=== PATIENT | female | born 1995 | race Caucasian/White ===

== ENCOUNTER 2017-05-03 20:41 | Emergency (ER) | payer BC ==
[~2017-05-03] VITALS: Ht 182.9 cm; Wt 67.3 kg
[2017-05-03 20:46] VITALS: TEMP 36.8; Ht 182.9 cm; Wt 67.3 kg
[2017-05-03] MEDS ORDERED: SODIUM CHLORIDE 0.9% 1000ML 1,000 ML IV STA (21:56)
--- NOTE | 2017-05-03 22:02 | EMERGENCY ROOM VISIT NOTE ---
History Report prepared by Livan: Silke Hillman Under the Supervision of: Dr. Katrina Manning M.D. First contact with patient: 21:46 Chief Complaint: RECTAL BLEEDING Stated Complaint: LOTS OF WORMS, BLOOD IN STOOL History of Present Illness The patient is a 22 year old female who presents to the Emergency Room with complaints of persistent rectal bleeding that began this morning. She currently rates her discomfort as a 7/10 in severity. The patient states that this morning she had a bowel movement and noticed blood in the stool and worms. She states that as the day progressed, she became increasingly weak and became near syncopal. The patient states that this afternoon she went to [facility] with a stool sample and was confirmed that she had round worms and with tapeworm eggs in her stool. She states that she was given a prescription to take care of her symptoms, but states that her pharmacy was closed for the evening. The patient states that her stool is diarrhea in consistency. She denies any chance of . 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 Source of History: patient Onset: this morning Position: other (rectal) Symptom Intensity: 7/10 Quality: other (bleeding) Timing: other (persistent) Associated Symptoms: + weakness Note: Associated Symptoms: near syncopal, worms in stool Review of Systems See HPI for pertinent positives & negatives. A total of 10 systems reviewed and were otherwise negative. Past Medical & Surgical Medical Problems: (1) Skin problem (2) Ulcer Family History Hypertension Retinal detachment Social History Smoking Status: Never Smoker Smokeless Tobacco Use: No Alcohol Use: occasionally Marital Status: single Housing Status: lives alone Occupation Status: employed, [employer] student Current/Historical Medications Scheduled Control Pills ( Control Pills), 1 TAB PO DAILY Allergies Coded Allergies: No Known Allergies (Unverified , 05/03/17) Physical Exam Vital Signs Date Time Temp Pulse Resp B/P (MAP) Pulse Ox O2 Delivery O2 Flow Rate FiO2 05/03/17 23:15 73 20 137/100 98 Room Air 05/03/17 22:22 58 05/03/17 22:22 58 20 131/96 98 Room Air 05/03/17 22:13 55 125/86 64 138/97 66 131/96 05/03/17 20:46 36.8 70 18 144/95 100 Room Air Physical Exam Vital signs reviewed. General: Well-appearing female, in no significant distress. HEENT: No scleral icterus, PERRLA, neck supple. Atraumatic. Cardiovascular: Regular rate and rhythm, no extra sounds. Pulmonary: Clear to auscultation bilaterally, normal work of breathing. Abdomen: Soft, nontender, nondistended, positive bowel sounds. Musculoskeletal: Atraumatic, no peripheral edema. Neurologic: Patient awake alert and oriented x 3 Skin: Warm, dry, no rash Medical Decision & Procedures Laboratory Results 05/03/17 22:15 Red Blood Count 4.69, Mean Corpuscular Volume 82.9, Mean Corpuscular Hemoglobin 28.6, Mean Corpuscular Hemoglobin Concent 34.4, Mean Platelet Volume 9.0, Neutrophils (%) (Auto) 39.6, Lymphocytes (%) (Auto) 47.1, Monocytes (%) (Auto) 10.2, Eosinophils (%) (Auto) 2.6, Basophils (%) (Auto) 0.3, Neutrophils # (Auto ) 2.44, Lymphocytes # (Auto) 2.90, Monocytes # (Auto) 0.63, Eosinophils # (Auto ) 0.16, Basophils # (Auto) 0.02 05/03/17 22:15 Test 05/03/17 22:15 White Blood Count 6.16 K/uL (4.8-10.8) Red Blood Count 4.69 M/uL (4.2-5.4) Hemoglobin 13.4 g/dL (12.0-16.0) Hematocrit 38.9 % (37-47) Mean Corpuscular Volume 82.9 fL (80-100) Mean Corpuscular Hemoglobin 28.6 pg (25-34) Mean Corpuscular Hemoglobin Concent 34.4 g/dl (32-36) Platelet Count 222 K/uL (130-400) Mean Platelet Volume 9.0 fL (7.4-10.4) Neutrophils (%) (Auto) 39.6 % Lymphocytes (%) (Auto) 47.1 % Monocytes (%) (Auto) 10.2 % Eosinophils (%) (Auto) 2.6 % Basophils (%) (Auto) 0.3 % Neutrophils # (Auto) 2.44 K/uL (1.4-6.5) Lymphocytes # (Auto) 2.90 K/uL (1.2-3.4) Monocytes # (Auto) 0.63 K/uL (0.11-0.59) Eosinophils # (Auto) 0.16 K/uL (0-0.5) Basophils # (Auto) 0.02 K/uL (0-0.2) RDW Standard Deviation 41.1 fL (36.4-46.3) RDW Coefficient of Variation 13.7 % (11.5-14.5) Immature Granulocyte % (Auto) 0.2 % Immature Granulocyte # (Auto) 0.01 K/uL (0.00-0.02) Anion Gap 11.0 mmol/L (3-11) Est Creatinine Clear Calc Drug Dose 97.5 ml/min Estimated GFR () 96.8 Estimated GFR (Non- 83.5 BUN/Creatinine Ratio 9.9 (10-20) Calcium Level 8.4 mg/dl (8.5-10.1) Total Bilirubin 0.5 mg/dl (0.2-1) Direct Bilirubin 0.1 mg/dl (0-0.2) Aspartate Amino Transf (AST/SGOT) 16 U/L (15-37) Alanine Aminotransferase (ALT/SGPT) 24 U/L (12-78) Alkaline Phosphatase 40 U/L (45-117) Total Protein 7.0 gm/dl (6.4-8.2) Albumin 3.8 gm/dl (3.4-5.0) Laboratory results per my review. Medications Administered Medications (Trade) Dose Ordered Sig/Chris Route Start Time Stop Time Status Last Admin Dose Admin Sodium Chloride 1,000 ml @ 999 mls/hr Q1H1M STAT IV 05/03/17 21:56 05/03/17 22:56 DC 05/03/17 21:56 999 MLS/HR Potassium Chloride (Klor-Con M10) 40 meq NOW STAT PO 05/03/17 23:09 05/03/17 23:10 DC 05/03/17 23:09 40 MEQ ED Course 2148: Past medical records reviewed. The patient was evaluated in room C3. A complete history and physical examination was performed. 2155: Ordered Sodium Chloride 1000 ml @ 999 mls/hr IV. 9: Ordered Potassium Chloride 40 meq PO. 2328: I reevaluated the patient and she is doing well. I discussed the exam findings with her and I discussed the treatment plan. She verbalized complete understanding and agreement. She is ready to go home. Medical Decision The patient is a 22 year old female who presents to the ED with complaints of rectal bleeding. Differentials include parasitic infection, food borne illness , dehydration, electrolyte abnormality, GI bleed. Medication Reconciliation: I attest that I have personally reviewed the patient' s current medication list. Blood Pressure Screening: Patient was found to have an elevated blood pressure and was referred to their primary doctor for recheck and further treatment. This patient was evaluated and appeared to be in no significant distress. IV access was obtained and laboratory work was drawn. 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 She was hydrated with normal saline solution. The patient's laboratory work reveals a stable H&H. She does have mildly depleted sodium and potassium levels. Patient was given potassium 40 mEq by mouth. The patient was informed of the findings. She is very interested in not creating a large bill and prefers to have her prescription filled tomorrow at the pharmacy. The patient was encouraged to continue treatment as previously prescribed for her parasitic infection. She will follow-up with her physician for reevaluation and repeat laboratory work regarding her electrolytes. She will return to the ER for worsening of symptoms or any medical concerns. Impression Primary Impression: Parasites in stool Additional Impressions: Hyponatremia Hypokalemia Scribe Attestation The scribe's documentation has been prepared under my direction and personally reviewed by me in its entirety. I confirm that the note above accurately reflects all work, treatment, procedures, and medical decision making performed by me. Departure Information Dispostion Home / Self-Care Referrals No Doctor, Assigned (PCP) Forms HOME CARE DOCUMENTATION FORM, IMPORTANT VISIT INFORMATION, WORK / SCHOOL INSTRUCTIONS Patient Instructions My [facility] Additional Instructions Diagnosis: Hyponatremia, hypokalemia Increase the salt and potassium in your diet. Take your medication as prescribed for your parasite infection. Drink plenty of fluids. Follow-up with [facility] for repeat laboratory evaluation in one week, mostly sodium and potassium. Return to the emergency department for worsening of symptoms or any medical concerns. Problem Qualifiers
[2017-05-03 22:30] LABS: BASO % 0.3 %; BASO ABS # 0.02 K/uL (0-0.2); COMPLETE YES; EOS % 2.6 %; HEMATOCRIT 38.9 % (37-47); IG% 0.2 %; LYMPH % 47.1 %; MEAN CELL VOLUME 82.9 fL (80-100); MEAN CORPUSCULAR HEMOGLOBIN 28.6 pg (25-34); MEAN CORPUSCULAR HGB CONC 34.4 g/dl (32-36); MONO % 10.2 %; NEUT % 39.6 %; PLATELET COUNT 222 K/uL (130-400); RED BLOOD COUNT 4.69 M/uL (4.2-5.4); WHITE BLOOD COUNT 6.16 K/uL (4.8-10.8)
[2017-05-03 22:55] LABS: BUN/CREATININE RATIO 9.9 (10-20); CREATININE 0.97 mg/dl (0.60-1.20); POTASSIUM 3.3 mmol/L (3.5-5.1)
[2017-05-03 22:59] LABS: CALCIUM 8.4 mg/dl (8.5-10.1)
[2017-05-03] MEDS ORDERED: BCPILLS PO (23:05)
[2017-05-03] MEDS ORDERED: POTASSIUM CHLORIDE 10 MEQ TABCR PO STA (23:09)
[2017-05-03 23:15] VITALS: BP 137/100; PULSE 73; O2SAT 98
== END 2017-05-03 23:36 | disposition home or self-care (01) ==
LOC: C.EDB 20:43 → C.EDC 23:36
DX: B82.9 Intestinal parasitism, unspecified (principal); Z82.49 Family history of ischemic heart disease and other diseases of the circulatory system; Z79.3 Long term (current) use of hormonal contraceptives; E87.1 Hypo-osmolality and hyponatremia; E87.6 Hypokalemia

== ENCOUNTER 2018-02-05 02:44 | Emergency (ER) | payer BC ==
[~2018-02-05] VITALS: Ht 167.6 cm; Wt 70.2 kg
[~2018-02-05 02:44] MED LIST: BCPILLS PO
[2018-02-05 02:53] VITALS: TEMP 37.2; Ht 167.6 cm; Wt 70.2 kg
[2018-02-05] MEDS ORDERED: SODIUM CHLORIDE 0.9% 1000ML 1,000 ML IV STA (03:04)
[2018-02-05 03:30] LABS: BASO % 0.4 %; BASO ABS # 0.04 K/uL (0-0.2); EOS % 0.5 %; EOS ABS # 0.05 K/uL (0-0.5); HEMATOCRIT 38.2 % (37-47); HEMOGLOBIN 13.3 g/dL (12.0-16.0); IG# 0.02 K/uL (0.00-0.02); LYMPH % 16.6 %; LYMPH ABS # 1.63 K/uL (1.2-3.4); MEAN CELL VOLUME 83.6 fL (80-100); MEAN CORPUSCULAR HEMOGLOBIN 29.1 pg (25-34); MEAN CORPUSCULAR HGB CONC 34.8 g/dl (32-36); MEAN PLATELET VOLUME 8.7 fL (7.4-10.4); MONO % 14.2 %; NEUT % 68.1 %; PLATELET COUNT 279 K/uL (130-400); RED CELL DISTRIBUTION WIDTH CV 14.4 % (11.5-14.5); RED CELL DISTRIBUTION WIDTH SD 44.5 fL (36.4-46.3); WHITE BLOOD COUNT 9.84 K/uL (4.8-10.8)
[2018-02-05 03:51] LABS: ALBUMIN 4.2 gm/dl (3.4-5.0); CALCIUM 9.3 mg/dl (8.5-10.1); CREATININE 0.82 mg/dl (0.60-1.20); POTASSIUM 3.3 mmol/L (3.5-5.1)
[2018-02-05 03:54] LABS: TOTAL PROTEIN 7.7 gm/dl (6.4-8.2)
--- NOTE | 2018-02-05 04:28 | EMERGENCY ROOM VISIT NOTE ---
History First contact with patient: 02:54 Chief Complaint: OTHER COMPLAINT Stated Complaint: Found wondering around downtown, r/o overdose History of Present Illness The patient is a 22 year old female who presents to the Emergency Room via ALS for evaluation of possible overdose. History is limited due to patient's mental status. Per EMS and police, the patient was wandering around downtown and knocked on a stranger's door. They answered the door and the patient went inside and would not answer questions, prompting them to call the police. The patient denies any drug or alcohol use. She denies any complaints. Review of Systems A complete 10 point review of systems was reviewed with the patient with pertinent positives and negatives as per history of present illness. All else were negative. 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 Vital signs stable. GENERAL: This is a 22-year-old female, in no acute distress, nondiaphoretic, well-developed well-nourished. SKIN: The skin was without rashes. HEAD: Normocephalic atraumatic. EARS: External auditory canals clear, tympanic membranes pearly neri without erythema or effusion bilaterally. EYES: Pupils equal round and reactive to light and accommodation. Extraocular movements intact. MOUTH: Mucous membranes moist. Tonsils are not enlarged. Pharynx without erythema or exudate. NECK: Supple without nuchal rigidity. No lymphadenopathy. No meningismus. HEART: Regular rate and rhythm without murmurs gallops or rubs. LUNGS: Clear to auscultation bilaterally without wheezes, rales or rhonchi. ABDOMEN: Positive bowel sounds x 4. Soft, nondistended. NEURO: Patient was alert, initially oriented only to person. She is able to follow commands. No focal neuro deficits. PSYCH: Odd affect. Patient answers questions quietly and looks around the room frequently. Medical Decision & Procedures ER Provider Diagnostic Interpretation: Per statrad interpretation: CT HEAD: No evidence of intracranial hemorrhage, mass, or shift in midline structure. Calvarium is intact. Paranasal sinuses and mastoid air cells are clear. Radiologist: Tariq Reed DO Laboratory Results 02/05/18 03:10 Red Blood Count 4.57, Mean Corpuscular Volume 83.6, Mean Corpuscular Hemoglobin 29.1, Mean Corpuscular Hemoglobin Concent 34.8, Mean Platelet Volume 8.7, Neutrophils (%) (Auto) 68.1, Lymphocytes (%) (Auto) 16.6, Monocytes (%) (Auto) 14.2, Eosinophils (%) (Auto) 0.5, Basophils (%) (Auto) 0.4, Neutrophils # (Auto ) 6.70, Lymphocytes # (Auto) 1.63, Monocytes # (Auto) 1.40, Eosinophils # (Auto ) 0.05, Basophils # (Auto) 0.04 02/05/18 03:10 Test 02/05/18 03:10 02/05/18 03:31 White Blood Count 9.84 K/uL (4.8-10.8) Red Blood Count 4.57 M/uL (4.2-5.4) Hemoglobin 13.3 g/dL (12.0-16.0) Hematocrit 38.2 % (37-47) Mean Corpuscular Volume 83.6 fL (80-100) Mean Corpuscular Hemoglobin 29.1 pg (25-34) Mean Corpuscular Hemoglobin Concent 34.8 g/dl (32-36) Platelet Count 279 K/uL (130-400) Mean Platelet Volume 8.7 fL (7.4-10.4) Neutrophils (%) (Auto) 68.1 % Lymphocytes (%) (Auto) 16.6 % Monocytes (%) (Auto) 14.2 % Eosinophils (%) (Auto) 0.5 % Basophils (%) (Auto) 0.4 % Neutrophils # (Auto) 6.70 K/uL (1.4-6.5) Lymphocytes # (Auto) 1.63 K/uL (1.2-3.4) Monocytes # (Auto) 1.40 K/uL (0.11-0.59) Eosinophils # (Auto) 0.05 K/uL (0-0.5) Basophils # (Auto) 0.04 K/uL (0-0.2) RDW Standard Deviation 44.5 fL (36.4-46.3) RDW Coefficient of Variation 14.4 % (11.5-14.5) Immature Granulocyte % (Auto) 0.2 % Immature Granulocyte # (Auto) 0.02 K/uL (0.00-0.02) Anion Gap 10.0 mmol/L (3-11) Est Creatinine Clear Calc Drug Dose 101.5 ml/min Estimated GFR () 118.6 Estimated GFR (Non- 102.3 BUN/Creatinine Ratio 8.2 (10-20) Calcium Level 9.3 mg/dl (8.5-10.1) Total Bilirubin 0.8 mg/dl (0.2-1) Direct Bilirubin 0.2 mg/dl (0-0.2) Aspartate Amino Transf (AST/SGOT) 20 U/L (15-37) Alanine Aminotransferase (ALT/SGPT) 34 U/L (12-78) Alkaline Phosphatase 82 U/L (45-117) Total Protein 7.7 gm/dl (6.4-8.2) Albumin 4.2 gm/dl (3.4-5.0) Salicylates Level < 1.7 mg/dl (2.8-20) Acetaminophen Level < 2 ug/ml (10-30) Ethyl Alcohol mg/dL < 3.0 mg/dl (0-3) Urine Color YELLOW Urine Appearance CLEAR (CLEAR) Urine pH 7.5 (4.5-7.5) Urine Specific Mercer 1.005 (1.000-1.030) Urine Protein NEG (NEG) Urine Glucose (UA) NEG (NEG) Urine Ketones NEG (NEG) Urine Occult Blood NEG (NEG) Urine Nitrite NEG (NEG) Urine Bilirubin NEG (NEG) Urine Urobilinogen NEG (NEG) Urine Leukocyte Esterase SMALL (NEG) Urine WBC (Auto) 1-5 /hpf (0-5) Urine RBC (Auto) 0-4 /hpf (0-4) Urine Hyaline Casts (Auto) 0 /lpf (0-5) Urine Epithelial Cells (Auto) >30 /lpf (0-5) Urine Bacteria (Auto) NEG (NEG) Urine Test NEG (NEG) Urine Opiates Screen NEG (NEG) Urine Methadone, Qualitative NEG (NEG) Urine Barbiturates NEG (NEG) Urine Phencyclidine (PCP) Level NEG (NEG) Ur Amphetamine/Methamphetamine NEG (NEG) MDMA (Ecstasy) Screen NEG (NEG) Urine Benzodiazepines Screen NEG (NEG) Urine Cocaine Metabolite NEG (NEG) Urine Marijuana (THC) NEG (NEG) Medications Administered Medications (Trade) Dose Ordered Sig/Chris Route Start Time Stop Time Status Last Admin Dose Admin Sodium Chloride 1,000 ml @ 999 mls/hr Q1H1M STAT IV 02/05/18 03:04 02/05/18 04:04 DC 02/05/18 03:20 999 MLS/HR Risperidone (Risperdal Tab) 1 mg NOW STAT PO 02/05/18 08:16 02/05/18 08:23 DC 02/05/18 08:16 1 MG ED Course The patient was evaluated as above. Labs were drawn and IV access was obtained. CT of the head was performed and read by estephania as above. Patient was reevaluated and was able to answer a few questions. When asked about the events of last night, she states she was "following her instincts." Patient will need to be monitored for several more hours and evaluated by mental health prior to discharge. Medical Decision Differential diagnosis includes drug use, alcohol intoxication, head trauma, mood disorder, infection, among others. The patient is a 22-year-old female who presents today via EMS for evaluation. The patient was found wandering around and knocked on a stranger's door. Patient initially was very disoriented. CT head was negative. Labs revealed no leukocytosis, anemia, or concerning electrolyte abnormalities. Urinalysis was not suggestive of infection. Tox screen was negative, although I am highly suspicious of the use of synthetic drugs. Patient's mental status improved over several hours, although she still exhibited some odd behavior. I did ask mental health to evaluate the patient prior to her potential discharge. Care of the patient was signed out to Marycruz Cosme PA-C at change of shift pending this. Medication Reconcilliation Current Medication List: was personally reviewed by me Blood Pressure Screening Patient's blood pressure: Normal blood pressure Impression Primary Impression: Altered mental status Departure Information Referrals No Doctor, Assigned (PCP) Patient Instructions My [facility]
[2018-02-05 05:56] VITALS: BP 110/59
--- NOTE | 2018-02-05 06:36 | DIAGNOSTIC IMAGING REPORT ---
HEAD WITHOUT CONTRAST (CT) CLINICAL HISTORY: 22 years-old Female with OVERDOSE, AMS. Acute altered mental status with drug overdose TECHNIQUE: Multiple axial CT images of the head were obtained without contrast. A dose lowering technique was utilized adhering to the principles of ALARA. CT DOSE: 614.27 mGy.cm COMPARISON: None. FINDINGS: No acute intracranial hemorrhage, midline shift, intracranial mass, hydrocephalus, territorial ischemia or abnormal extra-axial collection. The calvarium is intact. The paranasal sinuses, mastoid air cells, and middle ear cavities are clear. IMPRESSION: No acute intracranial abnormality. The above report was generated using voice recognition software. It may contain grammatical, syntax or spelling errors. Electronically signed by: Can White M.D. 02/05/2018 6:35 AM Dictated Date/Time: 02/05/2018 6:33 AM
[2018-02-05] MEDS ORDERED: RISPERIDONE 1 MG TAB PO STA (08:16)
--- NOTE | 2018-02-05 08:20 | Psych Management Progress Note ---
Psychiatry Miscellaneous Date of Service: Feb 05, 2018. Reviewed chart and discussed case with psychiatric liaison nurse. UDS negative but synthetics not yet collected and patient with AMS and disorganization. Patient made comment to staff that she smoked a joint. She reports a mental health history but can't give details, and hasn't been able to give any contact info for family or friends. 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 Vital signs stable, EKG NSR with QTc 428. Only other episode of care here was ER 04/2017 with hyponatremia, hypokalemia and AMS, was hydrated and electrolytes repleted, and discharged from the ER. If patient willing to take risperidone, could try 1mg M tab. This may help organize her thoughts enough that an assessment could be performed. Recommend collateral information be obtained from someone who knows her to help determine safety, mental health history, and recent symptoms.
[2018-02-05] MEDS ORDERED: LORAZEPAM 1 MG TAB PO STA (10:25)
--- NOTE | 2018-02-05 14:31 | EMERGENCY ROOM VISIT NOTE ---
ED Visit Note First contact with patient: 13:31 I received this patient in signout from Melinda Guidry PA-C at shift change in the morning. The patient was found wandering around downtown, and was suspected of drug and/or alcohol overdose. The patient had been knocking on strangers doors , so EMS was contacted. The patient was very paranoid on initial examination, and throughout the beginning of my shift. She was unable to answer simple questions, and was not making sense with her statements. The patient was monitored and moved to a psychiatric bed. She was given 1 mg risperidone at the recommendation of the psychiatrist and was feeling significantly improved and was able to make more sense. Afterwards, the patient did begin experiencing some anxiety and was having difficulty keeping her thoughts straight, so she was given 1 mg Ativan. The psychiatric case briefer were able to speak with the patient at length, and she was alert and oriented, completely aware of the events. Her emergency department workup overnight was overall normal. I did speak with the patient and asked if she used any drugs or alcohol. The patient states "I prefer not to say, as they normally just do what feels right at the time." The patient was alert and oriented on my examination. Examination performed as outlined below. She denies any suicidal or homicidal ideations. The patient was felt safe for discharge home. She is encouraged to follow-up outpatient with a psychiatrist and/or her primary care provider. Discharge instructions reviewed, patient was discharged home in good condition. PHYSICAL EXAMINATION VITALS: Vitals are noted on the nurse's note and reviewed by myself. Vital signs stable. GENERAL: This is a 22-year-old white female, in no acute distress, nondiaphoretic, well-developed well-nourished. The patient's affect is odd, but she is pleasant and her sentences do make sense. SKIN: The skin was without rashes, erythema, edema, or bruising. There is no tenting of the skin. Capillary reflex less than 2 seconds. HEAD: Normocephalic atraumatic. EYES: Pupils equal round and reactive to light and accommodation. Conjunctivae without injection, sclerae without icterus. Extraocular movements intact. MOUTH: Mucous membranes moist. Tonsils are not enlarged. Pharynx without erythema or exudate. Uvula midline. Airway patent. Tongue does not deviate. NECK: Supple without nuchal rigidity. No lymphadenopathy. No thyromegaly. Cervical spine is nontender. No JVD. HEART: Regular rate and rhythm without murmurs gallops or rubs. LUNGS: Clear to auscultation bilaterally without wheezes, rales or rhonchi. No dullness to percussion. No retractions or accessory muscle use. ABDOMEN: Positive bowel sounds x 4. Normal tympanic percussion. Soft, nontender, without masses or organomegaly. Harley sign negative. No guarding or rebound tenderness. MUSCULOSKELETAL: No muscle atrophy, erythema, or edema noted. Full range of motion without joint tenderness in all extremities. No tenderness to palpation. Normal gait. Strength 5/5 throughout. NEURO: Patient was alert and oriented to person place and time. Normal sensation to light and sharp touch. Deep tendon reflexes 2+ throughout. No focal neurological deficits. Impression: Altered mental status
[2018-02-05 15:01] VITALS: PULSE 100; O2SAT 99
== END 2018-02-05 15:03 | disposition home or self-care (01) ==
LOC: EDBD 02:44 → C.EDA 02:45
DX: R41.82 Altered mental status, unspecified (principal)